=== PATIENT | female | born 1965 | race African-American/Black ===

== ENCOUNTER 2020-03-27 16:03 | Inpatient (IN) | payer SELFPAY ==
[~2020-03-27] VITALS: Ht 165.1 cm; Wt 114.8 kg
[2020-03-27] MEDS ORDERED: ACETAMINOPHEN 325MG TABLET PO STA (16:31)
[2020-03-27] MEDS ORDERED: CEFTRIAXONE 1 G PREMIX 50 ML IV ONE (16:45)
[2020-03-27] MEDS ORDERED: SODIUM CHLORIDE 0.9% 1000ML BAG (SEPSIS BOLUS) IV ONE (16:45)
[2020-03-27 17:28] LABS: HEMATOCRIT. 42.2 % (36.0-48.0); HEMOGLOBIN. 14.3 g/dL (12.0-16.0); MEAN CORPUSCULAR HEMOGLOBIN 29.2 pg (28.0-32.0); MEAN PLATELET VOLUME 10.2 fl (7.4-10.4); PLATELET 201 x1000/uL (130-400); RED CELL DISTRIBUTION WIDTH 15.7 % (11.6-14.6)
[2020-03-27 17:37] LABS: CHLORIDE 98 mEq/L (98-107)
[2020-03-27] MEDS ORDERED: POTASSIUM CHLORIDE 20MEQ TABLET SR PO ONE (18:00)
[2020-03-27] MEDS ORDERED: ONDANSETRON HCL 4MG/2ML INJ IV STA (18:26)
[2020-03-27 18:38] LABS: CLARITY URINE TURBID (CLEAR); COLOR URINE YELLOW (YELLOW); KETONES URINE TRACE (NEGATIVE); LEUKOCYTE ESTERASE URINE 3+ (NEGATIVE); NITRITE URINE NEGATIVE (NEGATIVE); OCCULT BLOOD URINE 1+ (NEGATIVE); PROTEIN URINE 2+ (NEGATIVE); SPECIFIC GRAVITY URINE 1.013 (1.005-1.030)
[2020-03-27 19:07] LABS: PLATELET ESTIMATE NORMAL
[2020-03-27] MEDS ORDERED: CLONIDINE 0.1MG TABLET PO PRN (20:30)
[2020-03-27] MEDS ORDERED: ONDANSETRON HCL 4MG/2ML INJ IV PRN (20:30)
[2020-03-27] MEDS ORDERED: GUAIFENESIN 200MG/10ML SUGAR FREE UDC PO PRN (20:30)
[2020-03-27] MEDS ORDERED: MAGNESIUM/ALUMINUM HYDROXIDE/SIMETHICONE 30ML UDC PO PRN (20:30)
[2020-03-27] MEDS ORDERED: CEFTRIAXONE 1 G PREMIX 50 ML IV SCH (20:30)
[2020-03-27] MEDS: ENOXAPARIN 30MG/0.3ML SYR SUBCUT SCH (22:25)
[2020-03-28 01:25] VITALS: BP 117/70
[2020-03-28 07:40] LABS: HEMATOCRIT. 37.5 % (36.0-48.0); HEMOGLOBIN. 12.7 g/dL (12.0-16.0); MEAN CORPUSCULAR HEMOGLOBIN 29.1 pg (28.0-32.0); MEAN CORPUSCULAR VOLUME 85.9 fL (81.0-99.0); RED BLOOD CELL COUNT 4.36 mill/uL (4.2-5.4); RED CELL DISTRIBUTION WIDTH 15.8 % (11.6-14.6)
[2020-03-28 07:50] LABS: CHLORIDE 103 mEq/L (98-107)
[2020-03-28 08:00] VITALS: BP 97/51
[2020-03-28] MEDS: ENOXAPARIN 30MG/0.3ML SYR SUBCUT SCH (08:20)
[2020-03-28] MEDS: POTASSIUM CHLORIDE 20MEQ TABLET SR PO SCH (09:26)
[2020-03-28] MEDS: SODIUM CHLORIDE 0.9% 1,000 ML IV SCH ×2 (09:26→22:04)
[2020-03-28] MEDS: ACETAMINOPHEN 325MG TABLET PO PRN ×3 (09:27→22:13)
[2020-03-28 12:00] VITALS: BP 139/56
[2020-03-28 14:25] LABS: ATYPICAL LYMPHOCYTES 1; PLATELET ESTIMATE NORMAL
[2020-03-28 14:26] LABS: PLATELET 188 x1000/uL (130-400)
[2020-03-28 16:00] VITALS: BP 140/52
[2020-03-28] MEDS: CEFTRIAXONE 1,000 MG in DEXTROSE 5% WATER 50 ML IV SCH (17:07)
[2020-03-28] MEDS ORDERED: DEXTROSE 50% WATER 50ML SYRINGE IV PRN (19:30)
[2020-03-28 20:00] VITALS: BP 128/74
[2020-03-28] MEDS: ENOXAPARIN 40MG/0.4ML SYR SUBCUT SCH (20:51)
[2020-03-28] MEDS: BLOOD SUGAR DIAGNOSTIC STRIP TEST SCH (20:51)
[2020-03-28] MEDS: INSULIN LISPRO 100 UNITS/ML SUBCUT SCH (21:00)
[2020-03-29] VITALS: BP 126/68
[2020-03-29] MEDS: ACETAMINOPHEN 325MG TABLET PO PRN ×3 (02:56→18:39)
[2020-03-29 04:00] VITALS: BP 132/89
[2020-03-29] MEDS: BLOOD SUGAR DIAGNOSTIC STRIP TEST SCH ×4 (06:45→21:00)
[2020-03-29] MEDS: INSULIN LISPRO 100 UNITS/ML SUBCUT SCH ×4 (07:15→21:00)
[2020-03-29 08:00] VITALS: BP 128/82
[2020-03-29] MEDS: POTASSIUM CHLORIDE 20MEQ TABLET SR PO SCH (08:57)
[2020-03-29] MEDS: ENOXAPARIN 40MG/0.4ML SYR SUBCUT SCH ×2 (08:58→22:05)
[2020-03-29 10:16] LABS: CHLORIDE 103 mEq/L (98-107)
[2020-03-29 12:00] VITALS: BP 136/93
[2020-03-29] MEDS: SODIUM CHLORIDE 0.9% 1,000 ML IV SCH (13:42)
[2020-03-29 16:00] VITALS: BP 150/90
[2020-03-29] MEDS: CEFTRIAXONE 1,000 MG in DEXTROSE 5% WATER 50 ML IV SCH (17:08)
[2020-03-29 20:00] VITALS: BP 149/99
[2020-03-30] VITALS: BP 147/86
[2020-03-30] MEDS: ACETAMINOPHEN 325MG TABLET PO PRN ×2 (00:09→05:30)
[2020-03-30 04:00] VITALS: BP 140/93
[2020-03-30] MEDS: BLOOD SUGAR DIAGNOSTIC STRIP TEST SCH (06:36)
[2020-03-30] MEDS: INSULIN LISPRO 100 UNITS/ML SUBCUT SCH (06:37)
[2020-03-30 08:00] VITALS: BP 126/83
[2020-03-30] MEDS: ENOXAPARIN 40MG/0.4ML SYR SUBCUT SCH (08:31)
[2020-03-30] MEDS: POTASSIUM CHLORIDE 20MEQ TABLET SR PO SCH (08:31)
[2020-03-30 11:16] VITALS: BP 128/88
== END 2020-03-30 11:35 | disposition home or self-care (01) | DRG 720 ==
LOC: ER 16:03 → EDBEDREQSVC 17:59 → EDBEDREQTM 17:59 → MICUSO 18:43 → EDBEDREQTM 18:47 → EDBEDREQ 18:47 → 7WST 03-28 06:13 → 5WST 03-28 17:39
PROVIDERS: ADMIT Hospitalist; ATTEND Hospitalist
DX: A41.9 Sepsis, unspecified organism (principal); I10 Essential (primary) hypertension; E11.9 Type 2 diabetes mellitus without complications; N17.9 Acute kidney failure, unspecified; E43 Unspecified severe protein-calorie malnutrition; E87.6 Hypokalemia; E87.1 Hypo-osmolality and hyponatremia; E89.0 Postprocedural hypothyroidism; N39.0 Urinary tract infection, site not specified; J18.9 Pneumonia, unspecified organism; Z20.828 Contact with and (suspected) exposure to other viral communicable diseases; Z79.899 Other long term (current) drug therapy; Z68.41 Body mass index [BMI] 40.0-44.9, adult
CPT/HCPCS: 36415; 71045; 80053; 81003; 82962; 83036; 83605; 83735; 84145; 84484; 85025; 87077; 87186; 87493; 87635; 93005; 99291; J0696; J1650; J2405; J7030; J7060